=== PATIENT | male | born 1955 | race African-American/Black ===

== ENCOUNTER → 2019-02-05 | Outpatient (CLI) | payer OTHER | LOC: LAB.O 11:02 | PROVIDERS: ATTEND Nurse Practitioner Family | DX: I10 Essential (primary) hypertension (principal); Z12.5 Encounter for screening for malignant neoplasm of prostate ==

== ENCOUNTER 2019-12-09 02:00 | Emergency (ER) | payer OTHER ==
[2019-12-09] MEDS ORDERED: methylPREDNISolone SODIUM SUC 125 MG/2 ML VIAL IV ONE (02:28)
[2019-12-09] MEDS ORDERED: raNITIdine HCL INJ 50 MG in SODIUM CHLORIDE 0.9% 50ML 50 ML IVPB ONE (02:28)
[2019-12-09] MEDS ORDERED: diphenhydrAMINE HCL 50 MG/ML VIAL IV ONE (02:29)
[2019-12-09] MEDS ORDERED: FAMOTIDINE IV PREMIX 20 MG in PREMIX BAG 1 BAG IVPB ONE ×2 (02:35→02:40)
[2019-12-09] MEDS ORDERED: FAMOTIDINE IV PREMIX 50 ML IVPB ONE (02:36)
--- NOTE | 2019-12-09 02:44 | ED.PDOC ---
History of Present Illness - General Chief Complaint: General Stated Complaint: top lip swelling, hx dental problems Time Seen by Provider: 12/09/19 02:24 - History of Present Illness Initial Comments: 63 M +pmh on lisinopril presents to ED c/o acute onset of upper lip swelling. Pt informs it began yesterday morning and was more mild in nature, lasting over several hours, and finally improving later in the day. He states tonight the swelling came back more significantly and has persisted throughout the night. He took his last dose of lisinopril at the beginning of the night and has been taking an DG inhibitor since approximately 2001. He denies h/o similar sx's and denies family h/o similar sx's. He denies alleviating/aggravating factors. He denies associated difficulty swallowing, voice change, tongue/mouth swelling, SOB, CP, abd pain, n/v, f/c. He is otherwise healthy with no other signs, symptoms, or complaints. Allergies/Adverse Reactions: Allergies Lisinopril Allergy (Verified 12/09/19 06:29) angio edema Home Medications: Ambulatory Orders Hydrochlorothiazide 12.5 mg PO DAILY 12/09/19 Review of Systems - Review of Systems Constitutional: Denies: chills, fever EENTM: States: mouth swelling. Denies: blurred vision, throat pain, throat swelling, mouth pain Respiratory: Denies: cough, short of breath, stridor, wheezing Cardiology: Denies: chest pain, syncope Gastrointestinal/Abdominal: Denies: abdominal pain, nausea, vomiting Genitourinary: Denies: dysuria, frequency Musculoskeletal: Denies: muscle pain, muscle stiffness Skin: Denies: change in color, lesions, rash Neurological: Denies: headache, numbness, tingling Hematologic/Lymphatic: Denies: swollen glands Past Medical History (General) - Patient Medical History Hx Seizures: No Hx Dementia: No Hx of COPD: No Hx Hypertension: Yes - Use of ACEi since approximately 2001, last dose was night of 12/08/2019 Hx Diabetes: No Surgical History: other - Vaccination History Hx Tetanus, Diphtheria Vaccination: Yes Hx Influenza Vaccination: No - Social History Hx Tobacco Use: Yes Hx Alcohol Use: Yes - occ beer Family Medical History - Family History Father Hx Cardiac Disease: Yes Hx Family Diabetes: Yes Hx Family Cancer: Yes Physical Exam - Physical Exam General Appearance: Alert, Comfortable, No apparent distress Eye Exam: bilateral normal - PERRLA, EOM intact Ears, Nose, Throat: normal pharynx, other - upper lip with significant swelling/edema, no discoloration or rash, no intraoral or oropharyngeal involvement, multiple dental caries without apical abscess and/or gingivitis Neck: full range of motion, supple, normal inspection, other - no lymphadenopathy, no submandibular swelling, no crepitance, no TTP, no erythema/induration, no voice change Respiratory: lungs clear, normal breath sounds, no respiratory distress, no accessory muscle use, other - no wheezing, no stridor, nor rales/rhonchi Cardiovascular/Chest: normal peripheral pulses, regular rate, rhythm, no edema, no JVD, no murmur Gastrointestinal/Abdominal: normal bowel sounds, non tender, soft Extremity: normal inspection, no pedal edema Neurologic: alert, normal mood/affect, oriented x 3 Skin Exam: normal color, warm/dry, other - no rash, no pruritis Lymphatic: no adenopathy Progress - Progress Progress: Presents with mild angioedema involving only the upper lips; likely DG inhibitor induced. Airway is uncompromised and unaffected. VSS and NAD. I will obtain labs, provide with IV famotidine, IV benadryl, IV methylprednisolone, and continue to monitor/reassess. Disposition will depend on labs and pt's overall course in ED; however, admission for observation is expected if pt does not improve throughout ED course. If pt shows improvement without progression during ED course, then discharge home may be warranted. 06:20 Rechecked pt. NAD, VSS, and pt states he is feeling better with improvement in his upper lip swelling. He continues to deny any oral or oropharyngeal swelling, dysphagia, odynophagia, voice change, dyspnea, abdominal pain, n/v. I have discussed lab results, my clinical impression, diagnosis, plan for discharge, requirement to follow up with primary care physician today for new antihypertensive medication management, and to never take any ACEi or ARB (drug ending in -pril or -sartan) again. I have given strict return to ED precautions including but not limited to: any new swelling that includes anything beyond his upper lip, swelling in mouth, swelling in throat, difficulty swallowing, difficulty breathing, change in voice, abdominal pain, n/v/d, and/or any other symptoms concerning to him. I did instruct that if he gets reoccurring upper lip swelling with no exacerbation beyond what it was tonight in the ED and with no other symptoms, then careful monitoring at home can be performed; otherwise, he should immediately return to ED without hesitation. Pt voices understanding, agrees with plan, and all questions answered. - Results/Orders Results/Orders: 12/09/19 02:28 IV Care:Saline Lock per [facility] Laboratory Results - last 24 hr 12/09/19 12/09/19 02:46 02:46 WBC 4.3 L RBC 4.47 L Hgb 14.5 Hct 41.3 L MCV 92.3 MCH 32.5 H MCHC 35.2 RDW 13.3 Plt Count 265 MPV 7.0 L Absolute Neuts (auto) 1.70 L Absolute Lymphs (auto) 1.60 Absolute Monos (auto) 0.70 Absolute Eos (auto) 0.20 Absolute Basos (auto) 0.00 Neutrophils % 39.9 L Lymphocytes % 37.9 Monocytes % 16.6 H Eosinophils % 4.9 Basophils % 0.7 Sodium 133 L Potassium 4.1 Chloride 102 Carbon Dioxide 23 Anion Gap 12.1 BUN 22 H Creatinine 1.15 BUN/Creatinine Ratio 19.1 Random Glucose 96 Serum Osmolality 269.6 L Calcium 9.1 Total Bilirubin 0.7 AST 31 ALT 19 Alkaline Phosphatase 49 Serum Total Protein 8.8 H Albumin 4.0 Globulin 4.8 H Albumin/Globulin Ratio 0.8 L Departure - Departure Clinical Impression: History of hypertension Adverse reaction to DG-I (angiotensin-converting enzyme inhibitor) Qualifiers: Encounter type: initial encounter Qualified Code(s): T46.4X5A - Adverse effect of anqbnonmejq-hsckzkjzug-nnbhgu inhibitors, initial encounter Angioedema of lips Qualifiers: Encounter type: initial encounter Qualified Code(s): T78.3XXA - Angioneurotic edema, initial encounter Time of Disposition: :20 Disposition: Discharge to Home or Self Care Condition: Excellent Departure Forms: ED Discharge - Pt. Copy, Patient Portal Self Enrollment Instructions: Angioedema (DC), Adverse Drug Reactions, Adult (DC), High Blood Pressure in Adults Diet: resume usual diet Referrals: [facility]END[facility], PATIENT CARE [Primary Care Provider] - 12/09/19 (See Paris Navarro today to get started on new antihypertensive medication. Do NOT EVER take an DG or ARB inhibitor again; any drug ending in "-pril" or "-sartan".) Home Medications: Ambulatory Orders Hydrochlorothiazide 12.5 mg PO DAILY 12/09/19
[2019-12-09 06:11] VITALS: BP 116/79; TEMP 97; O2SAT 97
== END 2019-12-09 06:30 | disposition home or self-care (01) ==
LOC: ER 02:00
DX: T46.4X5A Adverse effect of angiotensin-converting-enzyme inhibitors, initial encounter (principal); T78.3XXA Angioneurotic edema, initial encounter; I10 Essential (primary) hypertension; F17.200 Nicotine dependence, unspecified, uncomplicated; Y92.9 Unspecified place or not applicable
CPT/HCPCS: 80053; 85025; J1200; J2930; J3490